=== PATIENT | male | born 1980 | race Caucasian/White ===

== ENCOUNTER 2016-12-23 16:33 | Emergency (ER) | payer OTHER ==
[2016-12-23 17:22] VITALS: BP 137/88
[2016-12-23] MEDS ORDERED: Acetaminophen TAB* 325 MG PO ONE (18:37)
--- NOTE | 2016-12-23 18:44 | UC ---
UC General HPI - HPI Summary HPI Summary: Flu like symptoms. Fever with chills and body aches for the past few days. "muscles are on fire today" - History of Current Complaint Chief Complaint: UCRespiratory Stated Complaint: COUGH,BODY ACHES Time Seen by Provider: 12/23/16 18:37 Hx Obtained From: Patient Onset/Duration: Sudden Onset Timing: Constant Onset Severity: Moderate Current Severity: Moderate - Allergy/Home Medications Allergies/Adverse Reactions: Allergies Allergy/AdvReac Type Severity Reaction Status Date / Time No Known Allergies Allergy Verified 12/23/16 17:22 Home Medications: Home Medications Acetaminophen TAB* [Tylenol TAB*] 975 mg PO Q6H PRN 12/23/16 [History Confirmed 12/23/16] PMH/Surg Hx/FS Hx/Imm Hx Previously Healthy: Yes Endocrine History Of: Denies: Diabetes Cardiovascular History Of: Denies: Hypertension, Pacemaker/ICD Respiratory History Of: Denies: Asthma GI/ History Of: Denies: Renal Disease Neurological History Of: Denies: CVA Psychological History Of: Denies: Anxiety - Surgical History Surgical History: Yes Surgery Procedure, Year, and Place: RIGHT KNEE ARTHROSCOPY, 2007, [facility]. right shoulder - Social History Occupation: Employed Full-time Lives: With Family Alcohol Use: Occasionally Alcohol Amount: 1 PER MONTH Substance Use Type: None Smoking Status (MU): Never Smoked Tobacco Have You Smoked in the Last Year: No - Immunization History Most Recent Influenza Vaccination: has not had Most Recent Tetanus Shot: 01/30 Review of Systems Constitutional: Fever, Chills, Fatigue Skin: Negative Eyes: Negative ENT: Negative Respiratory: Cough Cardiovascular: Negative Gastrointestinal: Negative Genitourinary: Negative Motor: Negative Neurovascular: Negative Musculoskeletal: Myalgia Neurological: Negative Psychological: Negative All Other Systems Reviewed And Are Negative: Yes Physical Exam Triage Information Reviewed: Yes Appearance: Well-Appearing, Well-Nourished Vital Signs: Initial Vital Signs Temp 101.5 F 12/23/16 17:19 Pulse 119 12/23/16 17:19 Resp 18 12/23/16 17:19 BP 137/88 12/23/16 17:19 Pulse Ox 97 12/23/16 17:19 Vital Signs Reviewed: Yes Eye Exam: Normal ENT Exam: Normal ENT: Positive: Nasal drainage Dental Exam: Normal Neck exam: Normal Neck: Positive: 1 Respiratory Exam: Normal Cardiovascular Exam: Normal Musculoskeletal Exam: Normal Neurological Exam: Normal Psychological Exam: Normal Skin Exam: Normal Course/Dx - Course Course Of Treatment: He desires treatment as he still has significant myalgias and has gf at home and advised her to call OB to discuss poeeible treatment - Differential Dx - Multi-Symptom Provider Diagnoses: influenza Discharge - Discharge Plan Condition: Good Disposition: HOME Prescriptions: Oseltamivir CAP* [Tamiflu CAP*] 75 mg PO BID #10 cap Patient Education Materials: Influenza (ED) Forms: *Work Release Referrals: Shraddha Thompson MD [Primary Care Provider] - 3 Days
== END 2016-12-23 18:49 | disposition home or self-care (01) ==
LOC: UCCORT 16:33
DX: J11.1 Influenza due to unidentified influenza virus with other respiratory manifestations (principal)
CPT/HCPCS: 99212; A9270-GY; G0463

== ENCOUNTER 2018-03-18 21:52 | Emergency (ER) | payer OTHER ==
[2018-03-18 22:12] VITALS: BP 124/83
[2018-03-18] MEDS ORDERED: Ibuprofen TAB* 400 MG PO ONE (22:24)
[2018-03-18] MEDS ORDERED: Cyclobenzaprine TAB* 10 MG PO ONE (22:24)
--- NOTE | 2018-03-18 22:28 | UC ---
Back Pain HPI - HPI Summary HPI Summary: 37 y/o male presents to the urgent care c/o B/L upper back pain and spasm about 2 hours ago after picking up his baby. Pt reports he works in a [employer] and he sometimes develops upper back muscle spasm which are relief w/ flexeril PO. He requests flexeril. Pt states lately he has to take care of his baby and he is continuously picking him up. He also request a note for work. Pt denies neck pain, numbness or tingling sensation over the upper extremities, no saddle anesthesia, fecal or urinary incontinence, or urinary problems, flank pain, SOB , chest pain, abdominal pain or N/V/D. Pain is 8/10 worsen w/ lifting and w/o any radiation. He has PMHX of RT shoulder tendinopathy and surgery. - History of Current Complaint Chief Complaint: UCBackPain Stated Complaint: BACK PAIN Time Seen by Provider: 03/18/18 22:14 Hx Obtained From: Patient Onset/Duration: Gradual Onset, Lasting Days - this morning, Still Present, Worse Since - tonight Timing: Constant Severity Initially: Moderate Severity Currently: Moderate Pain Intensity: 8 Pain Scale Used: 0-10 Numeric Back Pain: Is Discrete @ - B/L upper back specially on the lateral sides Character: Sharp, Spasmodic Aggravating Factor(s): Movement, Lifting, Bending Alleviating Factor(s): Rest, OTC Meds Associated Signs And Symptoms: Positive: Pain with Weight Bearing - lefting his baby son. Negative: Redness, Fever, Weakness, Numbness, Tingling, Abdominal Pain, Flank Pain, Bladder Incontinence, Bowel Incontinence - Risk Factors AAA Risk Factors: Negative TAD Risk Factors: Negative Cauda Equina Risk Factors: Negative Epidural Abscess Risk Factors: Negative - Allergies/Home Medications Allergies/Adverse Reactions: Allergies Allergy/AdvReac Type Severity Reaction Status Date / Time No Known Allergies Allergy Verified 03/18/18 22:06 PMH/Surg Hx/FS Hx/Imm Hx Previously Healthy: Yes Endocrine History: Dyslipidemia - diet control - Surgical History Surgical History: Yes Surgery Procedure, Year, and Place: RIGHT KNEE ARTHROSCOPY, 2007, [facility]. right shoulder - Family History Known Family History: Positive: Cardiac Disease - Social History Occupation: Employed Full-time Lives: With Family Alcohol Use: None Alcohol Amount: 1 PER MONTH Substance Use Type: None Smoking Status (MU): Never Smoked Tobacco Have You Smoked in the Last Year: No - Immunization History Most Recent Influenza Vaccination: has not had Most Recent Tetanus Shot: 01/30 Review of Systems Constitutional: Negative Skin: Negative Eyes: Negative ENT: Negative Respiratory: Negative Cardiovascular: Negative Gastrointestinal: Negative Genitourinary: Negative Motor: Negative Neurovascular: Negative Musculoskeletal: Decreased ROM - upper back, Other: - B/L lateral sides of upper back pain Neurological: Negative Psychological: Negative Is Patient Immunocompromised?: No All Other Systems Reviewed And Are Negative: Yes Physical Exam - Summary Physical Exam Summary: Vital Signs Reviewed: Yes Appearance: Well-Appearing, Well-Nourished, male sitting in the examining table w/o any apparent distress. Eyes: Positive: Conjunctiva Clear - PERRLA, EOMI. ENT: Positive: Normal ENT inspection, Hearing grossly normal, Pharynx normal, TMs normal, Uvula midline Neck: Positive: Supple, Nontender, No Lymphadenopathy Respiratory: Positive: Chest non-tender, Lungs clear, Normal breath sounds, No respiratory distress Cardiovascular: Positive: RRR, No Murmur, Pulses Normal, Brisk Capillary Refill Abdomen Description: Positive: Nontender, No Organomegaly, Soft. Negative: CVA Tenderness (R), CVA Tenderness (L) Bowel Sounds: Positive: Present Musculoskeletal: Positive: Strength Intact, Other: - BACK: Patient walked into the urgent care room with symmetric ambulation, No signs of limping, antalgic, able to bear weight. No signs of trauma, No masses palpated. No midback point tenderness, No CVAT, no flank ecchymosis . B/L paraspinal muscle tenderness at the level of T5-10 w/ spasm. No sacroiliac notch tenderness, No saddle anesthesia. FROM: lower back, pain elicited w/ raising of both arms. Straight Leg Raise: negative. Patellar reflexes: brisk, symmetric Muscle strength lower extremities. Dorsiflexion/ plantar flexion of ankles. Heel/ toe walk. Lower extremities: Femoral, popliteal, posterior tibial, and dorsalis pedis pulses WNL. Pt refuse rectal exam Neurological: Positive: Alert, Muscle Tone Normal Psychological Exam: Normal Skin Exam: Normal Triage Information Reviewed: Yes Vital Signs: Initial Vital Signs Temp 97.5 F 03/18/18 22:07 Pulse 89 03/18/18 22:07 Resp 18 03/18/18 22:07 BP 124/83 03/18/18 22:07 Pulse Ox 98 03/18/18 22:07 Back Pain Course/Dx - Course Course Of Treatment: 37 y/o male presents to the urgent care c/o B/L upper back pain and spasm about 2 hours ago after picking up his baby. Pt reports he works in a [employer] and he sometimes develops upper back muscle spasm which are relief w/ flexeril PO. He requests flexeril. Pt states lately he has to take care of his baby and he is continuously picking him up. He also request a note for work. Pt denies neck pain, numbness or tingling sensation over the upper extremities, no saddle anesthesia, fecal or urinary incontinence, or urinary problems, flank pain, SOB, chest pain, abdominal pain or N/V/D. Pain is 8/10 worsen w/ lifting and w/o any radiation. He has PMHX of RT shoulder tendinopathy and surgery.Hx obtained. Pt B/L paraspinal muscle tenderness at the level of T5-10 w/ spasm on examination. Pt w/ a back strain and muscle spasm.Naproxen PO ordered at the clinic. Given by nurse. Pt tolerated well medication pain decrease. Pt Rx Ibuprofen PO, flexeril PO and first dose given at the clinic. Flexeril Po dispense 1 tab to take home. Patient was instructed to the f/u [facility] orthopedic in [address] Dozier if symptoms do not improve or worsen. Patient understands and agrees. Patient is able to ambulate freely w/o aid or limp. Plan of care was discussed with the patient and patient understands and agrees. All questions were answered at patient satisfaction. Pt left clinic hemodynamically stable and carrying his baby in [facility] car seat.. - Differential Dx/Diagnosis Differential Diagnosis/HQI/PQRI: Arthritis, Fracture, Herniated Disc, Strain, Sprain, Other - muscle spasm Provider Diagnoses: 1- acute upper back pain. 2-Muscle Spasm Discharge - Sign-Out/Discharge Documenting (check all that apply): Discharge/Admit/Transfer - D/C home - Discharge Plan Condition: Stable Disposition: HOME Prescriptions: Cyclobenzaprine TAB* [Flexeril 10 MG TAB*] 10 mg PO TID PRN #20 tab PRN Reason: Spasms - Muscle Ibuprofen TAB* [Motrin TAB* 800 MG] 800 mg PO Q6H PRN #30 tab PRN Reason: back pain Patient Education Materials: Muscle Spasm (ED), Back Pain (ED) Forms: *Work Release Referrals: Shraddha Thompson MD [Primary Care Provider] - 1 Week Des Dozier MD [Medical Doctor] - 1 Week Additional Instructions: 1- Please take Ibuprofen PO as directed after meals for pain. 2- Take Flexeril PO as directed for muscle spasm. Please do not drive while taking the medication. first dose dispense tonight. Please take it as soon as you get home 3- Avoid strenuous exercise of heavy lifting. 4- Please follow up with Orthopedic Dr Dozier or your PCP in 1 week if not improvement of symptoms, for further management. - Billing Disposition and Condition Condition: STABLE Disposition: HOME
== END 2018-03-18 22:39 | disposition home or self-care (01) ==
LOC: UCCORT 21:52
DX: M54.89 Other dorsalgia (principal); M62.830 Muscle spasm of back
CPT/HCPCS: 99212; A9270-GY; G0463